=== PATIENT | female | born 2005 | race Caucasian/White ===

== ENCOUNTER 2025-06-14 01:27 | Emergency (ER) | payer OTHER ==
[~2025-06-14] VITALS: Ht 157.5 cm; Wt 81.5 kg
[2025-06-14] MEDS ORDERED: SERT50TA29 PO (01:40)
[2025-06-14 03:18] VITALS: BP 118/74; TEMP 98.3; O2SAT 98
== END 2025-06-14 03:20 | disposition home or self-care (01) ==
LOC: M ED 01:27
DX: R22.32 Localized swelling, mass and lump, left upper limb (principal); S60.445A External constriction of left ring finger, initial encounter; W49.04XA Ring or other jewelry causing external constriction, initial encounter; Z79.899 Other long term (current) drug therapy; Y92.009 Unspecified place in unspecified non-institutional (private) residence as the place of occurrence of the external cause; Y93.89 Activity, other specified; Y99.9 Unspecified external cause status

== ENCOUNTER 2025-07-21 19:23 | Emergency (ER) | payer OTHER ==
[~2025-07-21] VITALS: Ht 157.5 cm; Wt 84.6 kg
[~2025-07-21 19:23] MED LIST: SERT50TA29 PO
[2025-07-21 19:27] VITALS: TEMP 97.5
[2025-07-21 23:30] VITALS: BP 122/79
[2025-07-21] MEDS ORDERED: BENZ200C70 PO (23:44)
[2025-07-21 23:45] VITALS: O2SAT 97
[2025-07-21] MEDS: BENZONATATE 100 MG CAPSULE PO ONE (23:45)
== END 2025-07-21 23:58 | disposition home or self-care (01) ==
LOC: M ED 19:23
DX: J06.9 Acute upper respiratory infection, unspecified (principal); R05.9 Cough, unspecified; F32.A Depression, unspecified; Z79.899 Other long term (current) drug therapy